=== PATIENT | male | born 1950 | race Caucasian/White ===

== ENCOUNTER 2017-07-09 14:35 | Outpatient (CLI) | payer MEDICARE | END 2017-07-09 14:36 | disposition home or self-care (01) | LOC: CTENTCT 14:35 | PROVIDERS: ATTEND Otolaryngology Plastic Surgery within the Head & Neck | DX: J34.2 Deviated nasal septum (principal) | CPT/HCPCS: 70486 ==

== ENCOUNTER 2017-07-22 08:15 | Day surgery (SDC) | payer MEDICARE ==
[2017-07-21 13:19] VITALS: BMI 29.1
[2017-07-22] MEDS ORDERED: Oxymetazoline HCl 0.05% ( 15 ML ) ONE ×2 (10:06→10:27)
[2017-07-22 10:23] LABS: Hemoglobin 15.4 g/dL (14.0-18.0)
[2017-07-22] MEDS ORDERED: Bacitracin Zinc Ointment 30 gm TUBE ONE (10:27)
[2017-07-22] MEDS ORDERED: Lidocaine 1% w/Epinephrine 1:100K 30 ML VIAL ONE (10:27)
[2017-07-22] MEDS ORDERED: Fentanyl 250 MCG/5 ML VIAL ONE (10:32)
[2017-07-22 10:54] LABS: Anion Gap 14 mmol/L (10-20); BUN (Urea Nitrogen) 14 mg/dL (8.4-25.7); Calc. Creatinine Clearance 110 mL/min (70-130); Calcium 9.9 mg/dL (7.8-10.44); Carbon Dioxide 24 mmol/L (23-31); Chloride 104 mmol/L (98-107); Estimated GFR-MDRD 83; Glucose 114 mg/dL (80-115); Potassium 4.1 mmol/L (3.5-5.1); Sodium 138 mmol/L (136-145)
[2017-07-22] MEDS ORDERED: Lidocaine 1% PF 5 ML VIAL ONE (11:56)
[2017-07-22] MEDS ORDERED: PROPOFOL 200 MG/20 ML VIAL ONE (11:56)
[2017-07-22] MEDS ORDERED: Ondansetron HCl/PF 4 MG/2 ML Vial ONE (11:56)
[2017-07-22] MEDS ORDERED: Dexamethasone 20 MG/5 ML VIAL ONE (11:56)
[2017-07-22] MEDS ORDERED: Succinylcholine Chloride 20 MG/ML 10 ml SYRINGE FS ONE (11:56)
--- NOTE | 2017-07-22 12:22 | EKG ---
Test Reason : PREOP Blood Pressure : / mmHG Vent. Rate : 055 BPM Atrial Rate : 055 BPM P-R Int : 186 ms QRS Dur : 082 ms QT Int : 398 ms P-R-T Axes : 012 -29 055 degrees QTc Int : 380 ms Sinus bradycardia Otherwise normal ECG No previous ECGs available Confirmed by JEVON GOTTI ([id number]) on 07/22/2017 12:21:29 PM Referred By: CHRISTIE Confirmed By:JEVON GOTTI
--- NOTE | 2017-07-23 10:47 | OP ---
DATE OF PROCEDURE: 07/22/2017. PREOPERATIVE DIAGNOSES: 1. Chronic rhinosinusitis. 2. Nasal septal deviation. 3. Bilateral inferior turbinate hypertrophy. 4. Nasal obstruction. 5. Right facial skin lesion. POSTOPERATIVE DIAGNOSES: 1. Chronic rhinosinusitis. 2. Nasal septal deviation. 3. Bilateral inferior turbinate hypertrophy. 4. Nasal obstruction. 5. Right facial skin lesion. PROCEDURES PERFORMED: 1. Bilateral endoscopic sinus surgery, total ethmoidectomies. 2. Bilateral endoscopic sinus surgery, maxillary antrostomies. 3. Bilateral endoscopic sinus surgery, frontal sinusotomies. 4. Nasal septoplasty. 5. Bilateral inferior turbinate submucosal resection. 6. Wide local excision of right facial lesion 2.0 cm with primary closure. SURGEON: Josue Beltrán M.D. ESTIMATED BLOOD LOSS: 50 mL COMPLICATIONS: None. ANESTHESIA: GETA. PROCEDURE IN DETAIL: Patient was taken to the operating room and placed supine on the table. General endotracheal anesthesia was obtained by the Anesthesia staff. Tube was secured in the left lower li p. Patient was then placed in the beach chair position, and Afrin pledgets were placed in the nasal c avity. Injections of 1% lidocaine with 1:100,000 epinephrine were made into the nasal septum as well as the inferior turbinates. Patient was then prepped and draped in standard surgical fashion for na christ surgery. Following this, the Afrin pledgets were removed. A [place] incision was made on the lef t nasal septum. Submucoperichondrial dissection was performed. The deviated portions of the septum included portions of the cartilage and the bony septum. These isolated areas were removed using thre e cutting rongeurs. There was noted to be a large dorsal and caudal strut, left intact for support o f the nose. The mucoperichondrial flaps were then reapproximated using a 4-0 gut stitch. Any straig ht pieces of cartilage were crushed prior to this and placed between the mucoperichondrial flaps. Fo llowing this, the inferior turbinates were then punctured with a submucosal coblation wand, and submu cosal coblations were performed of multiple areas of the inferior portion of the anterior inferior tu rbinate. Please note that the submucosal microdebrider was used to submucosally resect the anterior and inferi or portions of the inferior turbinates bilaterally. Following this, inferior turbinates were gently outfractured with a [place] elevator. Following this, the 0 degree scope was advanced into the middle meatus. A 1% lidocaine with 1:100,000 epinephrine was injected into the middle turbinates and latera l nasal wall. Following this, the middle turbinates were medially displaced using the [place] elevator . The uncinate process was then identified and anteriorly fractured using the ball-ended probe. Fol lowing this, the microdebrider and upbiting Blakesley forceps were used to remove the uncinate proces s bilaterally. Following this, the ball-ended probe was used to gently identify the natural maxillar y sinus ostia, which was then widened using the curved microdebrider bilaterally. Following this, th e ethmoidal bulla was identified bilaterally and was punctured using the microdebrider. The microdeb rider and upbiting Blakesley forceps were then used to remove the ethmoidal bulla along with the ante rior ethmoidal cells. Following this, the grand lamella was identified and was punctured into the po sterior ethmoidal cells bilaterally. Working from posterior to anterior, the ethmoidal cells were op ened in a mucosal-sparing technique. Following this, the curved microdebrider along with 45-degree e ndoscope was then used to visualize the frontal recess area, which was further opened using the curve d microdebrider and 90 degree Blakesley forceps. The frontal sinus ostia was identified and was gent ly widened anteriorly and laterally using the microdebrider. Following this, the nasal cavity was ir rigated. Meropacks were placed. Beard splints were placed and secured. Following this, the right c heek was then prepped and draped in standard surgical fashion. An incision in natural skin lines was made with a 15 blade overlying a 2 cm epidermal inclusion cyst. The edges of the cyst were then dis sected out and the cyst along with a small ellipse of skin was completely removed. The wound was irr igated. A 5-0 Monocryl stitches were used to reapproximate the subcuticular layers. Dermabond was p laced on the skin. The patient tolerated the procedure well.
== END 2017-07-22 13:57 | disposition home or self-care (01) ==
LOC: SDC 08:15
PROVIDERS: ATTEND Otolaryngology Plastic Surgery within the Head & Neck
PROC: 0HB1XZZ Excision of Face Skin, External Approach (ICD-10-PCS; principal; 2017-07-22)
PROC: 09TL8ZZ Resection of Nasal Turbinate, Via Natural or Artificial Opening Endoscopic (ICD-10-PCS; 2017-07-22)
PROC: 099R8ZZ Drainage of Left Maxillary Sinus, Via Natural or Artificial Opening Endoscopic (ICD-10-PCS; 2017-07-22)
PROC: 099Q8ZZ Drainage of Right Maxillary Sinus, Via Natural or Artificial Opening Endoscopic (ICD-10-PCS; 2017-07-22)
PROC: 09TV8ZZ Resection of Left Ethmoid Sinus, Via Natural or Artificial Opening Endoscopic (ICD-10-PCS; 2017-07-22)
PROC: 09TU8ZZ Resection of Right Ethmoid Sinus, Via Natural or Artificial Opening Endoscopic (ICD-10-PCS; 2017-07-22)
PROC: 099T8ZZ Drainage of Left Frontal Sinus, Via Natural or Artificial Opening Endoscopic (ICD-10-PCS; 2017-07-22)
PROC: 099S8ZZ Drainage of Right Frontal Sinus, Via Natural or Artificial Opening Endoscopic (ICD-10-PCS; 2017-07-22)
PROC: 09UM07Z Supplement Nasal Septum with Autologous Tissue Substitute, Open Approach (ICD-10-PCS; 2017-07-22)
DX: J32.4 Chronic pansinusitis (principal); J34.2 Deviated nasal septum; J34.3 Hypertrophy of nasal turbinates; J34.89 Other specified disorders of nose and nasal sinuses; L72.0 Epidermal cyst; I10 Essential (primary) hypertension; E78.5 Hyperlipidemia, unspecified; Z87.891 Personal history of nicotine dependence; Z79.82 Long term (current) use of aspirin; Z79.51 Long term (current) use of inhaled steroids; Z79.899 Other long term (current) drug therapy
CPT/HCPCS: 80048; 85014; 85018; 88304; 93005; 93010; J1100; J2001; J2405; J2704; J3010

== ENCOUNTER 2018-10-20 06:14 | Day surgery (SDC) | payer MEDICARE ==
[2018-10-19 12:11] VITALS: BMI 27.7
[2018-10-20 06:46] LABS: Hemoglobin 14.3 g/dL (14.0-18.0)
[2018-10-20 07:03] LABS: Anion Gap 12 mmol/L (10-20); BUN (Urea Nitrogen) 13 mg/dL (8.4-25.7); Calc. Creatinine Clearance 89 mL/min (70-130); Calcium 9.4 mg/dL (7.8-10.44); Carbon Dioxide 23 mmol/L (23-31); Chloride 106 mmol/L (98-107); Estimated GFR-MDRD 68; Glucose 144 mg/dL (80-115); Potassium 4.4 mmol/L (3.5-5.1); Sodium 137 mmol/L (136-145)
[2018-10-20] MEDS ORDERED: EPINEPHrine 1 MG/ML AMP ONE (07:39)
[2018-10-20] MEDS ORDERED: Fentanyl 100 MCG/2 ML VIAL ONE (07:45)
[2018-10-20] MEDS ORDERED: PROPOFOL 200 MG/20 ML VIAL ONE (12:32)
--- NOTE | 2018-10-20 18:10 | EKG ---
Test Reason : PREOP Blood Pressure : / mmHG Vent. Rate : 069 BPM Atrial Rate : 069 BPM P-R Int : 170 ms QRS Dur : 082 ms QT Int : 380 ms P-R-T Axes : 003 -25 015 degrees QTc Int : 407 ms Normal sinus rhythm Left axis deviation When compared with ECG of 22-JUL-2017 10:33, No significant change was found Confirmed by DR. Aníbal VERNON ([id number]) on 10/20/2018 6:09:46 PM Referred By: ARTURO Confirmed By:DR. Aníbal VERNON
--- NOTE | 2018-10-21 12:35 | OP ---
DATE OF PROCEDURE: 10/20/2018 PREOPERATIVE DIAGNOSES: 1. Bilateral true vocal cord lesions. 2. Dysphonia. 3. True vocal cord leukoplakia. POSTOPERATIVE DIAGNOSES: 1. Bilateral true vocal cord lesions. 2. Dysphonia. 3. True vocal cord leukoplakia. PROCEDURE PERFORMED: Microsuspension direct laryngoscopy with biopsies. ESTIMATED BLOOD LOSS: 0 mL. COMPLICATIONS: None. ANESTHESIA: GETA with Rosio jet ventilation. DESCRIPTION OF PROCEDURE: The patient was taken to the operating room, placed supine on the table. The Rosio Jet ventilation tube was then inserted into the trachea using the Dedo laryngoscope. Following this, the head of bed was turned 90 degrees. A shoulder roll was placed and the head was placed in gentle extension. The Dedo laryngoscope along with a tooth guard was placed in the oral cavity. The oral cavity and oropharynx were clear. The laryngeal inlet was then placed in suspension and the operating microscope with the 400 mm lens was then used to examine the vocal cords under high-power microscopy. There were leukoplakia and severe dysplastic changes to the anterior vocal cords bilaterally. Using the micro cups and micro dissectors, its level of mucosa was removed, avoiding the crotch of the anterior commissure. This was sent for pathological analysis and ephedrine-soaked pledget was then allowed to sit on the biopsy site for approximately 2 minutes before it was removed. The patient was then placed out of suspension, tolerated the procedure well. Job ID: [id number]
== END 2018-10-20 09:30 | disposition home or self-care (01) ==
LOC: SDC 06:14
PROVIDERS: ATTEND Otolaryngology Plastic Surgery within the Head & Neck
PROC: 0CBV8ZX Excision of Left Vocal Cord, Via Natural or Artificial Opening Endoscopic, Diagnostic (ICD-10-PCS; principal; 2018-10-20)
PROC: 0CBT8ZX Excision of Right Vocal Cord, Via Natural or Artificial Opening Endoscopic, Diagnostic (ICD-10-PCS; 2018-10-20)
DX: J38.3 Other diseases of vocal cords (principal); K21.9 Gastro-esophageal reflux disease without esophagitis; I10 Essential (primary) hypertension; E78.5 Hyperlipidemia, unspecified; Z87.891 Personal history of nicotine dependence; Z79.899 Other long term (current) drug therapy
CPT/HCPCS: 36415; 80048; 85014; 85018; 88305; 93005; 93010; J0171; J2704; J3010

== ENCOUNTER 2018-12-12 19:30 | Outpatient (CLI) | payer MEDICARE | END 2018-12-12 19:31 | disposition home or self-care (01) | LOC: SLEEPLAB 19:30 | PROVIDERS: ATTEND Otolaryngology Plastic Surgery within the Head & Neck | DX: G47.33 Obstructive sleep apnea (adult) (pediatric) (principal); R06.83 Snoring; K21.9 Gastro-esophageal reflux disease without esophagitis | CPT/HCPCS: 95811 ==

== ENCOUNTER 2019-01-19 06:33 | Day surgery (SDC) | payer MEDICARE ==
[2019-01-18 11:13] VITALS: BMI 29.5
[2019-01-19 07:30] LABS: Hemoglobin 13.3 g/dL (14.0-18.0)
[2019-01-19 07:38] LABS: Anion Gap 12 mmol/L (10-20); BUN (Urea Nitrogen) 15 mg/dL (8.4-25.7); Calc. Creatinine Clearance 98 mL/min (70-130); Calcium 9.1 mg/dL (7.8-10.44); Carbon Dioxide 21 mmol/L (23-31); Chloride 106 mmol/L (98-107); Estimated GFR-MDRD 73; Glucose 123 mg/dL (80-115); Potassium 4.3 mmol/L (3.5-5.1); Sodium 135 mmol/L (136-145)
[2019-01-19] MEDS ORDERED: Fentanyl 100 MCG/2 ML VIAL ONE (08:00)
[2019-01-19] MEDS ORDERED: Ferric Subsulfate (ASTRINGYN) 8 ML VIAL ONE (08:02)
[2019-01-19] MEDS ORDERED: Lidocaine 1% w/Epinephrine 1:100K 20 ML VIAL ONE (08:02)
[2019-01-19] MEDS ORDERED: methylPREDNISolone Acetate 40 mg/ml Vial ONE (08:28)
[2019-01-19] MEDS ORDERED: HYDROcodone/Acetaminophen 5/325 mg Tablet ONE (09:20)
[2019-01-19] MEDS ORDERED: Ondansetron PF 4 MG/2 ML Vial ONE (09:59)
[2019-01-19] MEDS ORDERED: Dexamethasone 20 MG/5 ML VIAL ONE (09:59)
[2019-01-19] MEDS ORDERED: Labetalol HCl 100 MG/20 ML VIAL ONE (09:59)
[2019-01-19] MEDS ORDERED: PROPOFOL 200 MG/20 ML VIAL ONE (09:59)
[2019-01-19] MEDS ORDERED: Lidocaine 1% PF 5 ML VIAL ONE (09:59)
[2019-01-19] MEDS ORDERED: Succinylcholine Chloride 20 MG/ML 10 ml SYRINGE FS ONE (09:59)
[2019-01-19] MEDS ORDERED: Morphine 2 MG/ML SYRINGE ONE ×2 (10:05→10:15)
--- NOTE | 2019-01-21 09:35 | OP ---
DATE OF PROCEDURE: 01/19/2019 PREOPERATIVE DIAGNOSES: 1. Chronic adenotonsillitis. 2. Adenotonsillar hypertrophy. 3. Dynamic nasal valve collapse. 4. Snoring. 5. Nasal obstruction. 6. Dysphonia. 7. Vocal cord lesion. 8. History of the pharyngeal malignancy. POSTOPERATIVE DIAGNOSES: 1. Chronic adenotonsillitis. 2. Adenotonsillar hypertrophy. 3. Dynamic nasal valve collapse. 4. Snoring. 5. Nasal obstruction. 6. Dysphonia. 7. Vocal cord lesion. 8. History of the pharyngeal malignancy. PROCEDURES PERFORMED: 1. Repair of lateral nasal wall defect, code [id number]. 2. Tonsillectomy and adenoidectomy. 3. Microsuspension direct laryngoscopy with biopsy. ESTIMATED BLOOD LOSS: 10 mL. COMPLICATIONS: None. ANESTHESIA: GETA. PROCEDURE IN DETAIL: After consent was obtained, the patient was identified, brought to the operating room, and placed on the operating table in the supine position. General endotracheal anesthesia and intravenous access were obtained and we proceeded with positioning the patient for oropharyngeal surgery. Oropharyngeal exposure was obtained with a Ricardo-Shashi mouth gag after a head drape was placed and secured with a towel clip. The Ricardo-Shashi mouth gag was then suspended from the Henriquez tray and palatal elevation was achieved with a red rubber catheter. The right tonsil was addressed first. We used a curved Allis to grasp the tonsil and retract it medially as an anterior pillar incision was made. The retrotonsillar fascial plane was then established and blunt dissection was performed with the suction cautery. Blood vessels were anticipated, identified, and cauterized as they were encountered. Ultimately, dissection was carried to the posterior tonsillar pillar mucosa which was incised hemostatically, as well as the base of tongue connection. The tonsil was then passed off as a specimen and bleeding points within the tonsillar bed were cauterized under direct visualization. We subsequently turned our attention to the contralateral side, where using a similar technique, a near identical procedure was performed. Again, the tonsil was grasped and retracted medially with a curved Allis. The retrotonsillar fascial plane was established and while the anterior pillar was retracted medially. The hemostatic blunt dissection of the tonsil with a suction cautery was performed with blood vessels anticipated, identified, and cauterized as they were encountered. Again, dissection continued to the base of tongue and posterior tonsillar pillar mucosa which was incised in a hemostatic fashion. The tonsillar beds were then carefully inspected and bleeding points were identified and cauterized with a suction cautery. After this portion of the procedure, hemostasis was completely obtained. Under direct mirror visualization, we visualized the adenoid pad. Under direct mirror visualization, we removed the bulk of the adenoid tissue with the adenoid curette. We then packed the nasopharynx for an appropriate period of time with Ywx-Gciradcspo-bdhmiamgu tonsillar sponges. After a period of observation, we removed the pack. Under indirect mirror visualization, we obtained hemostasis and vaporization of residual adenoid tissue with electrocautery. The patient's oral cavity was copiously irrigated with iced saline and subsequently suctioned. After completion of the procedure, the nasal cavity and oropharynx were irrigated and suctioned as were the gastric contents. The patient was then awakened and transferred to the recovery room where the patient remained in stable condition prior to discharge to Day Stay. Following this, the DL laryngoscope was used to examine the laryngeal surface and the patient was placed in suspension. There was leukoplakia present on the anterior right 3rd of the vocal cord. Using the microlaryngeal forceps and the operating microscope with 400 mm operating lens, the leukoplakia was removed from the vocal cord, taking great care to preserve the integrity and the deeper structures of the vocal cord. It was sent for pathological analysis and a small with Afrin pledget was placed for approximately 2 minutes on this area. Following this, the patient was removed from suspension. The nasal cavity was then examined after being decongested with Afrin. There was significant weakness of the lateral nasal wall and the lower lateral alar cartilages. A graft was inserted lateral to the nasal bone extending into the alar crease in order to provide support to the lateral nasal wall. The patient tolerated the procedure well. Job ID: [id number]
== END 2019-01-19 12:10 | disposition home or self-care (01) ==
LOC: SDC 06:33
PROVIDERS: ATTEND Otolaryngology Plastic Surgery within the Head & Neck
PROC: 0CTPXZZ Resection of Tonsils, External Approach (ICD-10-PCS; principal; 2019-01-19)
PROC: 0CTQXZZ Resection of Adenoids, External Approach (ICD-10-PCS; 2019-01-19)
PROC: 0CBV8ZZ Excision of Left Vocal Cord, Via Natural or Artificial Opening Endoscopic (ICD-10-PCS; 2019-01-19)
PROC: 09UK07Z Supplement Nasal Mucosa and Soft Tissue with Autologous Tissue Substitute, Open Approach (ICD-10-PCS; 2019-01-19)
DX: J34.89 Other specified disorders of nose and nasal sinuses (principal); J35.03 Chronic tonsillitis and adenoiditis; J38.3 Other diseases of vocal cords; I10 Essential (primary) hypertension; E78.5 Hyperlipidemia, unspecified; G47.33 Obstructive sleep apnea (adult) (pediatric); Z79.899 Other long term (current) drug therapy; Z88.5 Allergy status to narcotic agent
CPT/HCPCS: 36415; 80048; 85014; 85018; 88304; 88305; 93005; 93010; J1030; J1100; J2001; J2270; J2405; J2704; J3010

== ENCOUNTER 2019-12-23 13:51 | Outpatient (CLI) | payer MEDICARE ==
--- NOTE | 2019-12-23 15:27 | CT ---
CT PULMONARY LUNG SCAN: History: Previous history of nicotine dependence. Comparison: None. Findings: Lung screening specific (lung-rest): Negative. No suspicious pulmonary nodules. Potentially significant incidentals (lung RADS category S): Negative. Pulmonary incidentals: Scattered micronodules, the largest being a subpleural nodule along the right middle lobe with small pleural tail measuring up to 4 mm. Other incidentals: Small cyst hepatic segment 8. Moderate vascular coronary artery calcifications. No mediastinal adenopathy. Thoracic spine is intact. Sternum and manubrium are intact. No acute displaced rib fracture. Impression: 1. Lung RADS category 2: Benign appearance or behavior. Followup low-dose CT in 12 months is recomme nded. 2. Lung RADS category S: Negative. No new or unknown statistically significant incidental findings re quiring urgent additional evaluation. Transcribed Date/Time: 12/23/2019 3:37 PM
== END 2019-12-23 13:52 | disposition home or self-care (01) ==
LOC: BICCT 13:51
PROVIDERS: ATTEND Family Medicine
DX: Z12.2 Encounter for screening for malignant neoplasm of respiratory organs (principal); Z87.891 Personal history of nicotine dependence
CPT/HCPCS: G0297

== ENCOUNTER 2020-12-20 16:33 | Outpatient (CLI) | payer MEDICARE ==
[2020-12-22 14:28] LABS: SARS-CoV-2 PCR by NAA Not Detected (NotDetected)
== END 2020-12-20 16:34 | disposition home or self-care (01) ==
LOC: LABBT 16:33
PROVIDERS: ATTEND Surgery
DX: Z01.812 Encounter for preprocedural laboratory examination (principal); Z20.822 Contact with and (suspected) exposure to COVID-19
CPT/HCPCS: U0003; U0005

== ENCOUNTER → 2020-12-25 | Day surgery (SDC) | payer MEDICARE | LOC: SDC 13:06 | PROVIDERS: ATTEND Surgery | DX: J02.9 Acute pharyngitis, unspecified (principal); Z88.5 Allergy status to narcotic agent | CPT/HCPCS: 91010; 91034 ==

== ENCOUNTER 2020-12-28 11:07 | Outpatient (CLI) | payer MEDICARE ==
[2020-12-28 15:16] LABS: Anion Gap 13 mmol/L (10-20); BUN (Urea Nitrogen) 19 mg/dL (8.4-25.7); Calc. Creatinine Clearance 0 mL/min (70-130); Calcium 9.3 mg/dL (7.8-10.44); Carbon Dioxide 22 mmol/L (23-31); Chloride 107 mmol/L (98-107); Glucose 104 mg/dL (80-115); Potassium 4.9 mmol/L (3.5-5.1); Sodium 137 mmol/L (136-145)
[2020-12-28 15:38] LABS: Hemoglobin 8.4 g/dL (13.5-17.5); Mean Corpuscular HGB CONC 27.3 g/dL (32.0-36.0); Mean Corpuscular Hemoglobin 19.1 pg (27.0-33.0); Mean Corpuscular Volume 70.2 fl (81.2-95.1); Mean Platelet Volume 10.6 fl (7.4-10.4); Platelet Count 497 10x3/uL (150-450); RBC Distribution Width 16.4 % (11.5-14.5); Red Blood Cell (RBC) Count 4.39 10x6/uL (4.32-5.72); White Blood Cell (WBC) Count 10.5 10x3/uL (3.5-10.5)
[2020-12-28 19:20] LABS: SARS-CoV-2 PCR by NAA Not Detected (NotDetected)
== END 2020-12-28 11:08 | disposition home or self-care (01) ==
LOC: LABBT 11:07
PROVIDERS: ATTEND Otolaryngology Plastic Surgery within the Head & Neck
DX: Z01.818 Encounter for other preprocedural examination (principal); Z20.822 Contact with and (suspected) exposure to COVID-19
CPT/HCPCS: 80048; 85027; 93005; U0003; U0005; 93010

== ENCOUNTER 2021-01-02 07:46 | Day surgery (SDC) | payer MEDICARE ==
[2020-12-31 12:40] VITALS: BMI 28.0
[2021-01-02] MEDS ORDERED: Propofol 500 MG/50 ML VIAL ONE (09:34)
[2021-01-02] MEDS ORDERED: SUGAMMADEX SODIUM 200 MG/2 ML VIAL ONE (09:34)
[2021-01-02] MEDS ORDERED: Fentanyl 100 MCG/2 ML VIAL ONE (10:32)
[2021-01-02] MEDS ORDERED: EPINEPHrine 1 MG/ML AMP ONE (10:49)
[2021-01-02] MEDS ORDERED: Midazolam HCl 2 mg/2 ml Vial ONE (10:55)
[2021-01-02] MEDS ORDERED: Ondansetron PF 4 MG/2 ML Vial ONE (10:58)
[2021-01-02] MEDS ORDERED: Glycopyrrolate 0.2 MG/ML 5 ML SYRINGE ONE (10:58)
[2021-01-02] MEDS ORDERED: Dexamethasone 20 MG/5 ML VIAL ONE (10:58)
[2021-01-02] MEDS ORDERED: Lidocaine 1% PF 5 ML VIAL ONE (10:58)
[2021-01-02] MEDS ORDERED: PROPOFOL 200 MG/20 ML VIAL ONE (10:58)
[2021-01-02] MEDS ORDERED: Rocuronium Bromide 10 MG/ML (10ML VIAL) ONE (10:58)
[2021-01-02] MEDS ORDERED: HYDROcodone/Acetaminophen 5/325 mg Tablet ONE (12:45)
== END 2021-01-02 13:08 | disposition home or self-care (01) ==
LOC: SDC 07:46
PROVIDERS: ATTEND Otolaryngology Plastic Surgery within the Head & Neck
PROC: 0CBT8ZZ Excision of Right Vocal Cord, Via Natural or Artificial Opening Endoscopic (ICD-10-PCS; principal; 2021-01-02)
DX: C32.0 Malignant neoplasm of glottis (principal); J38.2 Nodules of vocal cords; K21.9 Gastro-esophageal reflux disease without esophagitis; I10 Essential (primary) hypertension; E78.5 Hyperlipidemia, unspecified; Z87.891 Personal history of nicotine dependence; Z79.899 Other long term (current) drug therapy; Z88.5 Allergy status to narcotic agent
CPT/HCPCS: 88305; 88312; 88323; 88342; J0171; J1100; J2250; J2405; J2704; J3010

== ENCOUNTER 2022-09-11 09:47 | Outpatient (CLI) | payer MEDICARE | END 2022-09-11 09:48 | disposition home or self-care (01) | LOC: NM 09:47 | PROVIDERS: ATTEND Urology | DX: C61 Malignant neoplasm of prostate (principal) | CPT/HCPCS: 78306; A9503 ==

== ENCOUNTER 2022-11-11 05:48 | Day surgery (SDC) | payer MEDICARE ==
[2022-11-10 16:15] VITALS: BMI 29.5
[2022-11-11] MEDS ORDERED: Lidocaine 1% (PF) 30 ML VIAL ONE (06:16)
[2022-11-11] MEDS ORDERED: fentaNYL 50 mcg/mL 1 mL Vial ONE (07:04)
[2022-11-11] MEDS ORDERED: Midazolam HCl 2 mg/2 ml Vial ONE (07:04)
[2022-11-11] MEDS ORDERED: Iopamidol 370 76% 100 ML VIAL ONE (15:46)
== END 2022-11-11 13:02 | disposition home or self-care (01) ==
LOC: CCL 05:48
PROVIDERS: ATTEND Internal Medicine Cardiovascular Disease
PROC: 4A023N6 Measurement of Cardiac Sampling and Pressure, Right Heart, Percutaneous Approach (ICD-10-PCS; principal; 2022-11-11)
DX: I25.10 Atherosclerotic heart disease of native coronary artery without angina pectoris (principal); I10 Essential (primary) hypertension; E78.5 Hyperlipidemia, unspecified; Z87.891 Personal history of nicotine dependence
CPT/HCPCS: 93458; C1769 ×2; 99152; J2001; J2250; J3010; Q9967